=== PATIENT | female | born 1970 | race Asian ===

== ENCOUNTER 2021-03-24 10:49 | Outpatient (CLI) | payer OTHER, BC, SELFPAY ==
--- NOTE | ~2021-03-24 | MM_ITS ---
EXAMINATION: MM screening donovan BI w homa HISTORY: Screening mammogram TECHNIQUE: Craniocaudal and mediolateral oblique 3-D tomosynthesis images were obtained and synthetic 2-D images were generated. CAD analysis was submitted and interpreted. COMPARISON: 08/05/2018 diagnostic left mammogram and left breast ultrasound 06/27/2018, 7 bilateral digital screening mammogram examinations BREAST PARENCHYMAL COMPOSITION: The breasts are heterogeneously dense, which may obscure small masses . FINDINGS: Asymmetry is noted in the mid to upper outer right breast. Diagnostic right mammogram and r ight breast ultrasound examination are recommended. Otherwise there is no evidence of suspicious mass, calcification, or architectural distortion to sugg est malignancy in either breast. There has been no other suspicious interval change. IMPRESSION: 1. Asymmetry in the mid to upper outer right breast 2. Diagnostic right mammogram and right breast ultrasound are recommended BI-RADS Category 0: Incomplete: Needs additional imaging evaluation. Reviewed, dictated and finalized at location A.
== END 2021-03-24 10:50 | disposition home or self-care (01) ==
LOC: ANHIMG 10:55
PROVIDERS: Visit Provider Obstetrics & Gynecology
DX: Z12.31 Encounter for screening mammogram for malignant neoplasm of breast (principal); R92.8 Other abnormal and inconclusive findings on diagnostic imaging of breast
CPT/HCPCS: 77063; 77067

== ENCOUNTER 2021-07-11 13:09 | Outpatient (CLI) | payer OTHER, BC, SELFPAY ==
--- NOTE | ~2021-07-11 | MMUS_ITS ---
EXAMINATION: MM diagnostic donovan RT w homa, US breast RT complete HISTORY: Follow-up right breast asymmetry TECHNIQUE: Additional 3-D tomosynthesis images of the right breast were performed and synthetic 2-D i mages were generated. CAD analysis was submitted and interpreted. High resolution complete right najma st ultrasound was performed. COMPARISON: Comparison to multiple prior studies sequentially, with oldest reviewed study dated 10/2012. BREAST PARENCHYMAL COMPOSITION: The breasts are heterogenously dense, which may obscure small masses. FINDINGS: MAMMOGRAPHIC FINDINGS: There are no suspicious masses, calcifications or architectural distortion in the right breast to sug gest malignancy. ULTRASOUND: Complete US of all 4 quadrants of the the right breast and retroareolar region was reviewed. There ar e multiple simple and complicated cyst of the right breast, largest at 9:00 measuring 6 mm. No suspic ious masses to suggest malignancy. IMPRESSION: 1. No evidence for malignancy in the right breast. Benign findings. 2. Routine yearly screening mammogram and regular clinical breast examination are recommended. BI-RADS Category 2: Benign finding(s). Reviewed, dictated and finalized at location A. [facility] [employer]ENTER IMPRESSION: 1. No evidence for malignancy in the right breast. Benign findings. 2. Routine yearly screening mammogram and regular clinical breast examination a re recommended. BI-RADS Category 2: Benign finding(s).
== END 2021-07-11 13:10 | disposition home or self-care (01) ==
LOC: ANHIMG 13:10
PROVIDERS: PCP Nurse Practitioner Family; Visit Provider Obstetrics & Gynecology Gynecology
DX: R92.8 Other abnormal and inconclusive findings on diagnostic imaging of breast (principal)
CPT/HCPCS: 76641; 77061; 77065; G0279

== ENCOUNTER → 2022-04-03 10:25 | Outpatient (CLI) | payer OTHER, BC, SELFPAY ==
--- NOTE | ~2022-04-03 | US_ITS ---
EXAMINATION: US thyroid DATE: 04/03/2022 10:46 INDICATION: Palpable thyroid nodule. TECHNIQUE: Multiple ultrasound images of the thyroid were obtained. COMPARISON: None. FINDINGS: The right thyroid lobe measures 5.4 x 1.4 x 1.7 cm. The left thyroid lobe measures 5.4 x 1.7 x 1.4 c m. There is normal echotexture and echogenicity throughout the thyroid gland. 1.5 x 1.4 x 0.9 cm hyp oechoic, solid, lobulated, wider than tall nodule in the isthmus, with macrocalcification. Normal vas cular flow is present. IMPRESSION: Highly suspicious solid nodule in the thyroid isthmus (TR 5), recommend fine-needle aspiration for fu rther evaluation. Reviewed, dictated and finalized at location K. OUT HAND IMPRESSION: Highly suspicious solid nodule in the thyroid isthmus (TR 5), recommend fine-ne edle aspiration for further evaluation.
== END ==
PROVIDERS: PCP Nurse Practitioner Family; Visit Provider Nurse Practitioner
DX: E04.1 Nontoxic single thyroid nodule (principal)
CPT/HCPCS: 76536

== ENCOUNTER 2022-08-09 10:18 | Outpatient (CLI) | payer OTHER, BC, SELFPAY ==
--- NOTE | 2022-08-09 10:25 | ECG_ITS ---
Measurements Intervals [place] Rate: 65 P: 5 [place]: 152 QRS: 71 QRSD: 80 T: 15 QT: 408 QTc: 424 Interpretive Statements SINUS RHYTHM BASELINE ARTIFACT- I, II, AVR NORMAL ECG NO PREVIOUS ECG AVAILABLE FOR COMPARISON Electronically Signed On 08-09-2022 10:39:40 CDT by Micky Thibodeaux D.O.
[2022-08-09 11:12] LABS: Anion Gap 7 mmol/L (8-16); Blood Urea Nitrogen 14 mg/dL (7-17); Calcium 8.7 mg/dL (8.4-10.2); Carbon Dioxide 21 mmol/L (22-30); Chloride 106 mmol/L (98-107); Estimated Glomerular Filt Rate > 60; Glucose 104 mg/dL (65-110); Potassium 4.1 mmol/L (3.4-5.0); Sodium 134 mmol/L (137-145)
== END 2022-08-09 10:19 | disposition home or self-care (01) ==
PROVIDERS: Anesthesiology; PCP Nurse Practitioner Family; Visit Provider Otolaryngology
DX: E11.9 Type 2 diabetes mellitus without complications (principal); Z01.818 Encounter for other preprocedural examination
CPT/HCPCS: 36415; 80048; 93005

== ENCOUNTER 2022-08-11 00:35 | Day surgery (SDC) | payer OTHER, BC, SELFPAY ==
[2022-08-01 09:56] VITALS: BMI 27.4
--- NOTE | 2022-08-01 10:00 | PC.NURSE ---
Report to the Outpatient Waiting Room, entrance under the green pavilion located off [facility], at time 6:00 on date 08/11/22. Planned Procedure Time: 8:00. Time changes happen often and if your time is changed the preop area will call you the afternoon before. - You and your visitor will be asked to self-screen and do not enter if you have any COVID symptoms. - Only one visitor is requested with a max of two and NO children visitors are allowed at this time. - The patient visitor may be requested to leave or wait in car when not with patient due to distancing restrictions. - A mask is optional within the hospital at this time. Patients may have clear liquids (water, carbonated beverages, clear teas, apple juice) until 3 hours prior to surgery with a maximum of 20 ounces. - No food from midnight until time of surgery Take the following medications with a SIP of water the morning of surgery: N/A DO NOT STOP ANY OF YOUR OTHER PRESCRIPTION MEDICATIONS PRIOR TO SURGERY?EXCEPT THE FOLLOWING Medications to discontinue per physician: N/A Date to take last dose: N/A Please no make-up, nail tanzanian, hairspray, perfume, deodorant, or body powder the day of surgery. No jewelry (including any body piercings) or valuables the day of surgery, leave them at home. Please take a shower or bath the night before, or the morning of, surgery with an antibacterial soap. Wear comfortable, loose fitting clothing. - Jewelry must be removed prior to entering the operating room. Rings and piercings that are not removed may be cut off. - The hospital will not accept responsibility for valuables. - Please leave all valuables, including medications, at home the day of surgery. If you are going home after surgery, a licensed box truck driver must drive you home. - NO public transportation without another adult if you receive anesthesia. - We recommend that an adult stay with you for 24 hours following discharge. - We also recommend that you do not drive, make important decision, drink alcoholic beverages, or take any drugs that were not prescribed by your health care provider for at least 24 hours after your discharge time. Follow any additional instructions given to you from your surgeon. If you or anyone in your household have experienced Covid symptoms in the past week, please notify your surgeon or the nurse liaison at the phone number below for possible testing. Telephone instructions given to MALCOLM HILLIARD and asked if any additional questions and then verbalized understanding. Patient advised to call surgeon office or pre surgery nurse liaison [phone] if any additional questions.
--- NOTE | 2022-08-10 08:04 | PM.IMHP ---
H&P: HPI History of Present Illness Date/Time: 08/10/22 08:04 Chief Complaint: papillary thyroid cancer of the isthmus Narrative: planned procedure Review of Systems Review of Systems: All systems reviewed & are unremarkable except as noted in HPI and below [facility] Past Medical History Medical History (Updated 08/10/22 @ 08:05 by Gigi Carpenter MD) delivery delivered 2012 Family History Family History (Updated 06/29/22 @ 08:31 by DASHA Medellin) Other Alcoholism Mother Cancer Diabetes mellitus Father Hypertension Sibling Thyroid disorder Social History Social History (Updated 06/29/22 @ 08:25 by DASHA Medellin) Smoking status: Never smoker Alcohol intake: never Substance use: never Substance use type: does not use Lack of Transportation: No Lack of Food: Never True Current Housing: I Have Housing Concerned About Future Housing: No Difficulty Paying Gas/Electric Bills: No Difficulty Paying for Meds: No Currently Unemployed: No Education: High School Diploma/GED Difficulty w/ Childcare or Family Care: No Living arrangements: with family Spiritual care concerns: No Meds Home Medications and Allergies Home Medications Medication Instructions Recorded Confirmed Type No Home Medications 08/01/22 08/01/22 History Allergies Allergy/AdvReac Type Severity Reaction Status Date / Time No Known Drug Allergies Allergy Unknown Verified 08/01/22 09:55 Exam Narrative: isthmus nodule palpable Assessment and Plan Assessment and plan (1) Papillary thyroid carcinoma: Code(s): C73 - Malignant neoplasm of thyroid gland Status: Acute Assessment and Plan: plan operating room thyroid isthmusectomy possible lobectomy possible total thyroidectomy if necessary. Risks were discussed including need for tracheostomy vocal cord cord paralysis unilateral or bilateral damage to the parathyroid glands bleeding infection need for further procedures need for postoperative radioactive iodine need for further imaging need for time off work need for time off school need for pain medication need for drain placement need for drain removal damage to any structure above the clavicles by myself damage to any structure during the induction and maintenance of anesthesia. We will also be performing recurrent laryngeal nerve monitoring. Damage to any structure around the site of the probes. Patient voiced understanding of these risks and agreed.
[2022-08-11] VITALS (13 sets, daily range): BP systolic 100–134; BP diastolic 62–79; PULSE 65–81; RESP 12–20; TEMP 36.4–37.1; O2SAT 98–100
[2022-08-11] MEDS: ACETAMINOPHEN 500 MG TABLET 1000 MG PO (06:30)
[2022-08-11] MEDS: LACTATED RINGERS 1,000 ML 30 ML IV CONT ×2 (06:40→11:56)
--- NOTE | 2022-08-11 07:23 | WPDHPUPDATE1 ---
History and Physical Update Update Date/Time: 08/11/22 07:23 History and Physical has been reviewed, including an updated exam of the patient. There are NO changes in the patient's condition. Risks, benefits, and alternatives have been discussed and questions answered. Patient agrees to proceed with procedure.
--- NOTE | 2022-08-11 07:29 | WPDANESEPPF ---
Anes - Initial Pre Proc Eval Procedure: Operation Date: 08/11/22 08:00 Proposed Procedures p Isthmusectomy Versus Lobectomy Versus Total Thyroidectomy - Gigi Carpenter MD Date/Time: 08/11/22 07:29 Surgeon: Gigi Carpenter MD Pre Op Diagnosis: Papillary Ca Patient Data Age: 52 Gender: F Height: 1.63 m Weight: 72.6 kg Allergies Allergy/AdvReac Type Severity Reaction Status Date / Time No Known Drug Allergies Allergy Unknown Verified 08/11/22 06:33 Home Medications Medication Instructions Recorded Confirmed Type No Home Medications 08/01/22 08/11/22 History Patient hx anesthesia problems: none Family hx anesthesia problems: none Results Review: All pre-operative results and documents have been reviewed as part of the pre-operative evaluation. [facility] Past Medical History Medical History delivery delivered 2012 Family History Family History Other Alcoholism Mother Cancer Diabetes mellitus Father Hypertension Sibling Thyroid disorder Social History Social History Smoking status: Never smoker Alcohol intake: never Substance use: never Substance use type: does not use Lack of Transportation: No Lack of Food: Never True Current Housing: I Have Housing Concerned About Future Housing: No Difficulty Paying Gas/Electric Bills: No Difficulty Paying for Meds: No Currently Unemployed: No Education: High School Diploma/GED Difficulty w/ Childcare or Family Care: No Living arrangements: with family Spiritual care concerns: No Anes - Eval Final PreProcedure Day of Procedure 08/11/22 07:29 Patient weight: overweight Heart: regular rate and rhythm Lungs: clear to auscultation Airway: Mallampati scale class II Neurological: alert and oriented Last oral intake: >/= 8 hours ASA classification: II Emergent: no Anesthetic plan: proceed Anesthesia type and monitoring: general ETT and standard monitoring Results Review: All pre-operative results and documents have been reviewed as part of the pre-operative evaluation. Informed Consent: The patient's anesthetic plan and its attendant risks and benefits were discussed with the patient/family/POA. Questions were solicited and answers provided to the satisfaction of the patient/family/POA.
[2022-08-11 07:48] LABS: Glucose Point of Care 121 mg/dl (65-105)
[2022-08-11] MEDS: ceFAZolin 2 GM/D5W 50 ML 2 GM/50 ML BAG IVPB (08:20)
[2022-08-11] MEDS: LIDO 1%/EPINEPHRINE 1:100,000 20 ML VIAL 5 ML INFILTRATE (08:39)
[2022-08-11 12:12] LABS: Glucose Point of Care 129 mg/dl (65-105)
[2022-08-11] MEDS: fentaNYL CITRATE INJ (*CRX) 100 MCG/2 ML VIAL 25 MCG IV PUSH ×7 (12:34→13:04)
[2022-08-11] MEDS: oxyCODONE HCL (*CRX) 5 MG TAB IR PO (14:31)
--- NOTE | 2022-08-11 18:04 | P.OP_ITS ---
Procedure Note - Detailed Date of Procedure 08/11/22 Pre-op Diagnosis Thyroid nodule papillary thyroid carcinoma Post-op Diagnosis Same Procedure Performed neck exploration Surgeon Gigi Carpenter MD Anesthesia General Indications see above Findings unable to locate large midline thyroid nodule which could be and I inadvertently split the nodule or was not down far enough inferiorly Description of Procedure patient identified consent verified. Patient brought operating room. Time-out performed. General anesthesia induced endotracheal tube secured in the airway. Nims monitoring. Patient prepped draped position Nims confirmed. Given that there was odd nodularity superior to the standard incision was made 1 cm higher about 2.5 fingerbreadths above the sternal notch in between the cricoid and sternal notch. A 4 cm incision was made and then extended to a 5 cm incision. Subplatysmal flaps were elevated left anterior jugular vein was large and obstructive this was ligated tied off with 3-0 interrupted silk sutures. Sub platysmal flaps elevated dura hooks placed midline were face split and moved out of the way thyroid lobes were identified no thyroid isthmus was located. Dissection was then carried down to the trach in attempt to undermine the thyroid isthmus and locate this large lobe again was not able to located. I was able to look all the way from the superior mediastinum up to the thyroid cartilage with no nodule identified. Of note preoperatively the nodule appeared to be much smaller and or absent. The decision at this time was made to close after discussion with Radiology given that I could not see the nodule in area was located on ultrasound. A drain was placed dura hooks rimmed the deep strap muscles closed with 3-0 interrupted Vicryl sutures. The platysma closed with 3- 0 interrupted Vicryl sutures. Deep dermal layer also closed with 3-0 interrupted Vicryl sutures. 4-0 Monocryl subcuticular suture was placed skin glue applied patient tolerated the procedure well her voice postoperatively was normal. I discussed with the that the with the that I was unable to find the nodule. Patient tolerated the procedure well no complications care the patient given Anesthesiology. Blood loss about 25 cc. Of note there was abnormal tissue in the midline thyroid region which was sent but it turned out just to be neck fat. There were no abnormal appearing lymph nodes during the time of surgery. Drains No Packing No Pathology Yes Complications No immediate complications Condition Stable Disposition PACU [facility] Billing Surgery - Charge Forward: Surgery Billing
== END 2022-08-11 15:35 | disposition home or self-care (01) ==
PROVIDERS: PCP Nurse Practitioner Family; Visit Provider Otolaryngology
PROC: (CPT 60210; principal; 2022-08-11 08:00)
DX: C73 Malignant neoplasm of thyroid gland (principal)
CPT/HCPCS: 60210; 82948; 88305; 88331; A9270; J0330; J0690; J1100; J2250; J2405; J2704; J3010; J7120

== ENCOUNTER 2023-05-08 13:24 | Outpatient (CLI) | payer OTHER, BC, SELFPAY ==
[2023-05-08 17:15] LABS: Free T4 Free Thyroxine 2.38 ng/mL (0.78-2.19)
[2023-05-08 17:45] LABS: Hemoglobin A1C 6.2 % (<5.7)
[2023-05-11 03:17] LABS: Thyroglobulin <0.1 ng/mL (2.8-40.9); Thyroglobulin Antibodies <1 IU/mL (<=1)
== END 2023-05-08 13:25 | disposition home or self-care (01) ==
LOC: ANHWCLAB 13:27
PROVIDERS: PCP Nurse Practitioner Family; Visit Provider Internal Medicine Endocrinology, Diabetes & Metabolism
DX: C73 Malignant neoplasm of thyroid gland (principal); R73.09 Other abnormal glucose
CPT/HCPCS: 36415; 83036; 84432; 84439; 84443; 86800

== ENCOUNTER 2023-09-29 11:10 | Emergency (ER) | payer OTHER, BC, SELFPAY ==
[2023-09-29 11:29] VITALS: BP 106/69; PULSE 98; RESP 16; TEMP 36.8; O2SAT 99
--- NOTE | 2023-09-29 11:31 | ED.URI ---
HPI - URI/Sore Throat General Chief Complaint: Upper Respiratory Infection Stated Complaint: SORE THROAT/FEVER/TIRED/STREP EXPOSURE Time Seen by Provider: 09/29/23 11:34 Source: patient and RN notes reviewed Mode of arrival: ambulatory Limitations: no limitations History of Present Illness HPI Narrative: 53-year-old female presents with concern for sore throat, sweats, fatigue. Reports symptoms started yesterday. Reports her daughter had strep throat recently MD elicited complaint: sore throat Related Data Home Medications Medication Instructions Recorded Confirmed metformin 500 mg tablet 500 mg PO DAILY 09/18/22 09/29/23 cholecalciferol (vitamin D3) 50 50 mcg PO DAILY 01/09/23 09/29/23 mcg (2,000 unit) capsule Allergies Allergy/AdvReac Type Severity Reaction Status Date / Time levothyroxine sodium Allergy Mild hives Verified 05/08/23 13:00 [From Synthroid] levothyroxine Allergy Unknown Hives Verified 05/08/23 13:00 Review of Systems Review of Systems: CONSTITUTIONAL: Reports malaise, sweats, fatigue EYES: Denies visual changes, redness, or discharge. ENT: Denies rhinorrhea, congestion, sinus pain, otalgia. Reports sore throat. CARDIOVASCULAR: Denies chest pain, palpitations, or edema. RESPIRATORY: Denies cough. Denies dyspnea. GASTROINTESTINAL: Denies abdominal pain, nausea, vomiting, diarrhea SKIN: Denies rash or itching. MUSCULOSKELETAL: Denies myalgia. NEUROLOGIC: Reports headache. All systems reviewed & are unremarkable except as noted in HPI and below PMFSH Past Medical History Medical History Hypothyroidism Papillary thyroid carcinoma Type 2 diabetes mellitus Surgical History Surgical History delivery delivered 2013 History of thyroidectomy 09/13/2022 Family History Family History Other Alcoholism Mother Cancer Diabetes mellitus Father Hypertension Sibling Thyroid disorder Social History Social History Smoking status: Never smoker Alcohol intake: never Substance use: never Substance use type: does not use Lack of Transportation: No Lack of Food: Never True Current Housing: I Have Housing Concerned About Future Housing: No Difficulty Paying Gas/Electric Bills: No Difficulty Paying for Meds: No Currently Unemployed: No Education: Associate Degree Difficulty w/ Childcare or Family Care: No Living arrangements: with family Spiritual care concerns: No Comments At time of signature, agree with nursing past medical, surgical, social and family history. There is no relevant family history pertinent to the presenting complaint Exam Narrative: GENERAL: Well-appearing, well-nourished, and in no acute distress. HEAD: Normocephalic EYES: PERRLA, conjunctivae clear ENT: Nares clear, turbinates edematous and erythematous, clear discharge. Mucous membranes moist. TM pearly finch with dull light reflex bilaterally; no tragal tenderness. Oropharynx erythematous without lesions. Tonsils enlarged and without exudate, no drooling, no hoarseness, no trismus, uvula midline. NECK: Supple. No lymphadenopathy CHEST: Clear to auscultation, breath sounds equal. No wheezing, rhonchi, rales, or stridor. No respiratory distress, speaks in full sentences. HEART: Regular rate and rhythm. No murmur heard. SKIN: Warm, dry, no rash. NEURO: Alert and oriented x3. PSYCH: Normal mood and affect Course Course Emergency Course: Patient is aware of diagnosis, understands and agrees to treatment plan. Anticipatory guidance given. Patient agrees to follow-up as directed and is aware of reasons to seek care at the emergency department. Portions of this record may have been created with voice recognition software Level of Care: Ex
== END 2023-09-29 11:44 | disposition home or self-care (01) ==
PROVIDERS: Emergency Provider Nurse Practitioner; PCP Nurse Practitioner Family
DX: J02.0 Streptococcal pharyngitis (principal); E89.0 Postprocedural hypothyroidism; E11.9 Type 2 diabetes mellitus without complications; Z85.850 Personal history of malignant neoplasm of thyroid
CPT/HCPCS: 87880; 99213; G0463

== ENCOUNTER 2023-11-13 14:12 | Outpatient (CLI) | payer OTHER, BC, SELFPAY ==
[2023-11-13 15:19] LABS: Thyroid Stimulating Hormone 0.299 uIU/mL (0.465-4.680)
[2023-11-13 16:14] LABS: Free T4 Free Thyroxine 1.89 ng/mL (0.78-2.19)
[2023-11-15 07:14] LABS: Thyroglobulin <0.1 ng/mL; Thyroglobulin Antibodies <1 IU/mL (< or = 1)
== END 2023-11-13 14:13 | disposition home or self-care (01) ==
PROVIDERS: PCP Nurse Practitioner Family; Visit Provider Internal Medicine Endocrinology, Diabetes & Metabolism
DX: C73 Malignant neoplasm of thyroid gland (principal); E89.0 Postprocedural hypothyroidism
CPT/HCPCS: 36415; 84432; 84439; 84443; 86800

== ENCOUNTER 2024-11-20 10:02 | Outpatient (CLI) | payer OTHER, BC, SELFPAY ==
[2024-11-20 10:47] LABS: Alanine Aminotransferase 86 U/L (6-35); Albumin Level 4.6 g/dL (3.5-5.1); Alkaline Phosphatase 55 U/L (38-126); Anion Gap 11 mmol/L (4-12); Aspartate Amino Transferase 55 U/L (14-36); Bilirubin,Total 0.6 mg/dL (0.2-1.3); Blood Urea Nitrogen 14 mg/dL (7-17); Calcium 9.4 mg/dL (8.4-10.2); Carbon Dioxide 26 mmol/L (22-30); Chloride 104 mmol/L (98-107); Cholesterol 187 mg/dL (0-200); Estimated Glomerular Filt Rate > 60; Glucose 112 mg/dL (65-110); HDL Direct 40 mg/dL; Sodium 141 mmol/L (137-145); Total Protein 8.4 g/dL (6.3-8.2); Triglycerides 168 mg/dL (<150)
[2024-11-20 10:51] LABS: Creatinine Urine 188.3 mg/dL
[2024-11-20 10:53] LABS: Free T4 Free Thyroxine 1.64 ng/dL (0.78-2.19); Vitamin D 25 Hydroxy 32.5 ng/mL
[2024-11-20 10:58] LABS: LDL Cholesterol Direct 89 mg/dL
[2024-11-20 10:59] LABS: MALB Creatinine Ratio 5.7 mg/g (0-30); Microalbumin Urine Random 10.8 mg/L (0-16.7)
[2024-11-20 11:22] LABS: Thyroid Stimulating Hormone 0.101 uIU/mL (0.465-4.680)
[2024-11-24 11:43] LABS: Thyroglobulin 0.2 ng/mL; Thyroglobulin Antibodies <1 IU/mL (< or = 1)
== END 2024-11-20 10:03 | disposition home or self-care (01) ==
LOC: ANHLAB 10:03
PROVIDERS: PCP Nurse Practitioner Family; Visit Provider Internal Medicine Endocrinology, Diabetes & Metabolism
DX: C73 Malignant neoplasm of thyroid gland (principal); E11.9 Type 2 diabetes mellitus without complications; E89.0 Postprocedural hypothyroidism; E55.9 Vitamin D deficiency, unspecified
CPT/HCPCS: 36415; 80053; 80061; 82043; 82306; 82607; 84432; 84439; 84443; 86800

== ENCOUNTER 2024-12-23 08:04 | Outpatient (CLI) | payer OTHER, BC, SELFPAY ==
--- NOTE | ~2024-12-23 | US_ITS ---
EXAM: ABDOMEN ULTRASOUND HISTORY: evaluate fatty liver COMPARISON: None FINDINGS: LIVER: The liver is increased in echogenicity and unremarkable in size. The portal vein is patent, demonstrating hepatopedal flow. GALLBLADDER: No stones are identified within the gallbladder, which is unremarkable. No gallbladder wall thickening or pericholecystic fluid. BILE DUCTS: Common bile duct measures 3.6mm. PANCREAS: Limited evaluation of the pancreas secondary to overlying bowel gas IMPRESSION: Limited evaluation of the pancreas secondary to overlying bowel gas Fatty infiltration of the liver, which is not enlarged. Otherwise, unremarkable sonographic evaluation of the right upper quadrant, as detailed above Reviewed, dictated and finalized at location A.
--- OUTSIDE RECORDS SUMMARY | 2024-12-23 08:11 | XMS_ITS | Referral Summary ---
Author Organization [facility] Address [address] [place] [address] Care Team Providers Care Interlocking Pavement Installer Name Role Phone Nancie Pires NP Primary Care Provider + [phone] Arian Wills MD Unavailable [phone] Allergies No known active allergies Medications cholecalciferol (VITAMIN D-3) 25 mcg (1,000 unit) tablet Take 1 tablet by mouth daily Active iron aspgly,ps-C-B12 -FA-Ca-suc (Ferrex 150 Forte Plus) 150-60-25-1 zw-rl-cgv-mg capsule Take 1 capsule by mouth daily Active metFORMIN (GLUCOPHAGE) 500 mg tablet 07/18/2020 Activ e Active Problems Problem Noted Date Diagnosed Date Abnormal findings on diagnostic imaging of breas t 02/06/2019 Abnormal mammogram of left breast 08/21/2018 Social History Tobacco Use Types Packs/Day Years Used Date Smoking Tobacco: Never Tobacco Cessation:Counseling Given: Not Answered Personal Safety Answer Date Recorded Getting School Help Needed Not on file 07/05 Comments No Sex and Gender Information Value Date Recorded Sex Assigned at Not on file Legal Sex Female 1:45 PM CDT Gender Identity Female 08/08/2018 1:15 PM CDT Sexual Orientation Not on file Last Filed Vital Signs Vital Sign Reading Time Taken Comments Blood Pressure 159/79 06/20/2022 9:50 AM BEZEL CUTTER Pulse 74 06/20/2022 9:50 AM BEZEL CUTTER Temperature 36.8 C (98.3 F) 06/20/2022 9:50 AM BEZEL CUTTER Respiratory Rate - - Oxygen Saturation - - Inhaled Oxygen Concentration - - Weight 74.4 kg (164 lb) 06/20/2022 9:50 AM BEZEL CUTTER Height 163.6 cm (5' 4.4) 06/20/2022 9:50 AM BEZEL CUTTER Body Mass Index 27.8 06/20/2022 9:50 AM BEZEL CUTTER Plan of Treatment Not on file Procedures Procedure Name Priority Date/Time Associated Diagnosis Comments SCREENING MAMMOGRAM BILATERAL W JULES Schedule Routine, Read Routine (OP Routine) 08/23/2020 9:54 AM CDT Encounter for screening mammogram for malignant neoplasm of breast from Last 3 Months or Most Recently Relevant to Health Maintenance Results * Screening Mammogram Bilateral W Jules (08/23/2020 9:54 AM CDT) Anatomical Region Laterality Modality Breast Bilateral Mammography Narrative 08/26/2020 2:04 PM CDT Mammogram Technique: Bilateral Digital Breast Tomosynthesis, Bilateral C-view 2D Screening mammogram. Views obtained: bilateral craniocaudal and bilateral mediolateral oblique. Computer Aided Detection was performed. Mammogram Findings: The present examination has been compared to a prior imaging study performed at [facility] on 08/21/2019. The breasts are heterogeneously dense, which may obscure small masses. There is no suspicious abnormality in either breast. Impression: There is no mammographic evidence of malignancy. Annual screening mammography is recommended. OVERALL FINAL ASSESSMENT: BI-RADS CATEGORY 1: Negative. Procedure Note Belkis Brown MD - 08/26/2020 Mammogram Technique: Bilateral Digital Breast Tomosynthesis, Bilateral C-view 2D Screening mammogram. Views obtained: bilateral craniocaudal and bilateral mediolateral oblique. Computer Aided Detection was performed. Mammogram Findings: The present examination has been compared to a prior imaging study performed at [facility] on 08/21/2019. The breasts are heterogeneously dense, which may obscure small masses. There is no suspicious abnormality in either breast. Impression: There is no mammographic evidence of malignancy. Annual screening mammography is recommended. OVERALL FINAL ASSESSMENT: BI-RADS CATEGORY 1: Negative. us Self Screening Mammogram IMG MAMMO PROCEDURES Fi nal Result from Last 3 Months or Most Recently Relevant to Health Maintenance Insurance [employer] PREFERRED Member Subscriber Plan / Payer (Ef fective 2022-Present) Name:Nicolette Hilliard Relation to Subscriber:Spouse Name:DANIELLE HILLIARD Date of :1972 (Home) Address: [address] [place] [id number] Payer ID:[id number] (NAIC) Type:Pathable Address: [address] CORE BLUE ACC CHOICE OOS [facility] Care Teams Interlocking Pavement Installer Relationship Specialty Start Date End Date Nancie Pires NP [address] [place] [address] [phone] PCP - General Nurse Practitioner 08/07/18 Arian Wills MD [address] [place] [id number] Referring Physician Obstetrics and Gynecology 08/21/18
--- OUTSIDE RECORDS SUMMARY | 2024-12-23 08:11 | XMS_ITS | Clinical Summary ---
Author Organization [facility] Address [address] [place] [address] Care Team Providers Care Apparatus Cleaner Name Role Phone Nancie Pires NP Primary Care Provider + [phone] Arian Wills MD Unavailable [phone] Allergies No known active allergies Medications cholecalciferol (VITAMIN D-3) 25 mcg (1,000 unit) tablet Take 1 tablet by mouth daily Active iron aspgly,ps-C-B12 -FA-Ca-suc (Ferrex 150 Forte Plus) 150-60-25-1 lm-sf-xux-mg capsule Take 1 capsule by mouth daily Active metFORMIN (GLUCOPHAGE) 500 mg tablet 07/18/2020 Activ e Active Problems Problem Noted Date Diagnosed Date Abnormal findings on diagnostic imaging of breas t 02/06/2019 Abnormal mammogram of left breast 08/21/2018 Surgical History Surgery Date Site/Laterality Comments SECTION 10/15/2012 Family History Medical History Relation Name Comments Breast cancer Mother Relation Name Status Comments Mother Social History Tobacco Use Types Packs/Day Years Used Date Smoking Tobacco: Never Tobacco Cessation:Counseling Given: Not Answered Personal Safety Answer Date Recorded Getting School Help Needed Not on file 07/05 Comments No Sex and Gender Information Value Date Recorded Sex Assigned at Not on file Legal Sex Female 1:45 PM CDT Gender Identity Female 08/08/2018 1:15 PM CDT Sexual Orientation Not on file Obstetrics History Last Filed Vital Signs Vital Sign Reading Time Taken Comments Blood Pressure 159/79 06/20/2022 9:50 AM RUBBER BLOCK LAYER Pulse 74 06/20/2022 9:50 AM RUBBER BLOCK LAYER Temperature 36.8 C (98.3 F) 06/20/2022 9:50 AM RUBBER BLOCK LAYER Respiratory Rate - - Oxygen Saturation - - Inhaled Oxygen Concentration - - Weight 74.4 kg (164 lb) 06/20/2022 9:50 AM RUBBER BLOCK LAYER Height 163.6 cm (5' 4.4) 06/20/2022 9:50 AM RUBBER BLOCK LAYER Body Mass Index 27.8 06/20/2022 9:50 AM RUBBER BLOCK LAYER Plan of Treatment Health Maintenance Due Date Last Done Comments Cervical Cancer Screening 1972 Colon Cancer Screening-Colonoscopy 1972 Depression Screening 1972 Hepatitis C Screening 1972 DTaP/Tdap/Td Vaccine (1 - Tdap) 1983 Hepatitis B Screening 1990 Regular Well Visit/Exam 18-64 1990 Breast Cancer Screening-Mammogram 08/23/2021 08/23/2020, 08/21/2019 Zoster Vaccine (1 of 2) 2022 Covid-19 Vaccine (3 - 2023-2 5 season) 2024 02/19/2021, 01/29/2021 Influenza Vaccine (#1) 2025 Pneumococcal vaccine <65 Aged Out No longer eligible based on patient's age to complete this topic Procedures Procedure Name Priority Date/Time Associated Diagnosis [...] to a prior imaging study performed at [facility] on 08/21/2019. The breasts are heterogeneously dense, [...] to a prior imaging study performed at [facility] on 08/21/2019. The breasts are heterogeneously dense, which may obscure small masses. There is no suspicious abnormality in either breast. Impression: There is no mammographic evidence of malignancy. Annual screening mammography is recommended. OVERALL FINAL ASSESSMENT: BI-RADS CATEGORY 1: Negative. us Self Screening Mammogram IMG MAMMO PROCEDURES Fi nal Result from Last 3 Months or Most Recently Relevant to Health Maintenance Insurance [facility] PREFERRED Member Subscriber Plan / Payer (Ef fective 2022-Present) Name:Nicolette Manuel Relation to Subscriber:Spouse Name:ARMINDADANIELLE Date of :1972 (Home) Address: [address] [place] [id number] Payer ID:[id number] (NAIC) Type:[facility] Address: [facility] [id number] [place] [id number] [facility] CORE BLUE ACC CHOICE OOS Member Subscriber Plan / Payer (Ef fective 2022-Present) Name:Nicolette Manuel Relation to Subscriber:Spouse Name:Danielle Mnauel Date of :1965 Address: [address] [place] [address] Payer ID:[id number] (NAIC) Type:[facility] Address: [address] [facility] H[facility]/PPO Address: [address] [address] [place] [address] Care Teams Apparatus Cleaner Relationship Specialty Start Date End Date Nancie Pires NP [address] [place] [phone] PCP - General Nurse Practitioner 08/07/18 Arian Wills MD [address] [place] [address] Referring Physician Obstetrics and Gynecology 08/21/18
--- OUTSIDE RECORDS SUMMARY | 2024-12-23 08:11 | XMS_ITS | Clinical Summary ---
Author Organization [facility] Address [address] [place] [address] Care Team Providers Care Manager Employee Benefits Name Role Phone Nancie Pires MICHELLE Primary Care Provider [phone] Allergies No known active allergies Medications vitamin D3, cholecalciferol , 1000 UNIT Tab tablet Take 1 tablet (25 mcg total) by mouth daily. Active Blood Glucose Monitoring Suppl (FREESTYLE LITE) DeviceIndicatio ns:Diabetes ([facility]) Use daily to check blood glucose level for diabetes 1 Device 0 Active Glucose Blood (FREESTYLE LITE) test stripIndication s:Diabetes ([facility]) Use daily to check blood glucose levels for diabetes 100 strip 1 0 Active Lancets (FREESTYLE) lancetsIndicati ons:Type 2 diabetes mellitus with hyperglycemia, without long-term current use of insulin ([facility]) Use daily to check blood glucose level for diabetes 100 each 2 1 Active Glucose Blood (CONTOUR NEXT TEST) test stripIndication s:Type 2 diabetes mellitus with hyperglycemia, without long-term current use of insulin ([facility]) 1 strip by Other route daily as needed. Use as instructed 200 strip 1 1 Active levothyroxine (SYNTHROID) 112 MCG tablet Take 1 tablet (112 mcg total) by mouth daily. Active metFORMIN (GLUCOPHAGE) 500 MG tabletIndicatio ns:Type 2 diabetes mellitus with hyperglycemia, without long-term current use of insulin ([facility]) Take 1 tablet (500 mg total) by mouth daily with breakfast. APPOINTMENT REQUIRED FOR FURTHER REFILLS. PLEASE CONTACT OFFICE. 90 tablet 3 5 Active Active Problems Problem Noted Date Diagnosed Date Thyroid mass of unclear etiology 08/14/2022 History of anemia 10/12/2020 Type 2 diabetes mellitus wit h hyperglycemia, without long-term current use of insulin ([facility]) 10/08/2020 Vitamin B12 deficiency 10/08/2020 Cardiac murmur 07/23/2019 Vitamin D deficiency 06/25/2018 Adult BMI 28.0-28.9 kg/sq m 06/25/2018 Encounters Date Type Department Care Team Description 11/20/2024 Scan [facility] Scanned, [facility] (SCAN) from Last 3 Months Immunizations Immunization Administration Dates Next Due PFIZER COVID-19 (ORIGINAL FO RMULATION, PURPLE CAP) mRNA, LNP-S, PF, 30 MCG/0.3 ML DOSE 02/19/2021,01/29/2021 Pneumococcal (Prevnar 20) 02/16/2023 Family History Medical History Relation Comments Diabetes Mother Hypertension Paternal Grandfather Thyroid Sister Relation Status Comments Mother Paternal Grandfather Sister Social History Tobacco Use Types Packs/Day Years Used Date Smoking Tobacco: Never Smokeless Tobacco: Never Tobacco Cessation:Counseling Given: Not Answered Alcohol Use Standard Drinks/Week Comments No 0 (1 standard drink = 0.6 oz pur e alcohol) AUDIT-C Answer Date Recorded Frequency of Alcohol Consumption Never 07/18/2019 Average Number of Drinks Not on file 020 Frequency of Binge Drinking Not on file 06/29 PHQ-2 Answer Date Recorded Patient Health Questionnaire-2 Score 0 08/14/2022 Comments No Sex and Gender Information Value Date Recorded Sex Assigned at Not on file Legal Sex Female 9:03 AM SCREW MACHINE SET UP OPERATOR TOOL Gender Identity Not on file Sexual Orientation Not on file Last Filed Vital Signs Vital Sign Reading Time Taken Comments Blood Pressure 134/88 07/09/2023 11:21 AM SCREW MACHINE SET UP OPERATOR TOOL Pulse 65 07/09/2023 11:21 AM SCREW MACHINE SET UP OPERATOR TOOL Temperature 36.4 C (97.6 F) 02/16/2023 10:13 AM CDT Respiratory Rate 16 02/16/2023 10:13 AM CDT Oxygen Saturation 100% 07/09/2023 11:21 AM SCREW MACHINE SET UP OPERATOR TOOL Inhaled Oxygen Concentration - - Weight 73.5 kg (162 lb) 07/09/2023 11:21 AM SCREW MACHINE SET UP OPERATOR TOOL Height 162.6 cm (5' 4) 07/09/2023 11:21 AM SCREW MACHINE SET UP OPERATOR TOOL Body Mass Index 27.81 07/09/2023 11:21 AM SCREW MACHINE SET UP OPERATOR TOOL Plan of Treatment Health Maintenance Due Date Last Done Comments Cervical Cancer Screening Pap Smear (Age 30 to 64) Every 3 Years 1972 Colorectal Cancer Screening Colonoscopy (10 Years) 1972 Kidney Health Evaluation 1972 Hepatitis C 1990 DTaP, Tdap and Td Vaccines (1 - Tdap) 1991 Hepatitis B Vaccines (1 of 3 - 19+ 3-dose series) 1991 Cervical Cancer Screening Pap with HPV Testing (Age 30 to 64) Every 5 Years 2002 Cervical Cancer Screening with HPV 2002 Annual Physical 06/19/2019 06/19/2018 Zoster Vaccines (1 of 2) 2022 Lipid Panel 02/06/2023 02/06/2022, 06/29, 03/20/2019 Mammogram Screening 07/11/2023 07/11/2021, 08/23/2020, 08/05/2018, Additional history exists Hemoglobin A1C 11/07/2023 05/08/2023, 01/27, 08/14/2022, Additional history exists COVID-19 Vaccine ( season) 2024 02/19/2021, 01/29/2021 PHQ-2 (Physician [place]) 05/28/2024 Diabetes: Retinopathy Eye Exam 01/17/2025 01/17/2023 Pneumococcal Vaccine: 50+ Years Completed 02/16/2023 Meningococcal B Vaccine Aged Out No l onger eligible based on patient's age to complete this topic Meningococcal Vaccine Aged Out No monica cory eligible based on patient's age to complete this topic RSV Immunizations Under 20 Months Aged Out No longer eligible based on patient's age to complete this topic Procedures Procedure Name Priority Date/Time Associated Diagnosis Comments OUTSIDE LAB (SCAN ORDER) 11/20/2024 OUTSIDE LAB (SCAN ORDER) 11/20/2024 OUTSIDE LAB (SCAN ORDER) 11/20/2024 OUTSIDE LAB (SCAN ORDER) Routine 05/08/2023 DIABETIC RETINOPATHY EXAM (NEGATIVE)(SCAN ORDER) Routine 01/17/2023 LIPID PANEL Routine 02/06/2022 9:20 AM CDT Type 2 diabetes mellitus with hyperglycemia, without long-term current use of insulin MAMMOGRAM GENERIC (SCAN ORDER) 07/11/2021 from Last 3 Months or Most Recently Relevant to Health Maintenance Results * OUTSIDE LAB (SCAN ORDER) (11/20/2024) Only the most recent of4 resultswithin the time period is included. 11/20/2024 [facility] Scanned SCANNING Final Resu lt * DIABETIC RETINOPATHY EXAM (NEGATIVE)(SCAN) (01/17/2023) [facility] Scanned SCANNING Final Resu lt [facility] * (ABNORMAL) LIPID PANEL (02/06/2022 9:20 AM CDT) CHOLESTEROL 153 <200 MG/DL 02/06/2022 4:24 PM CDT [facility] TRIGLYCERIDES 256(H) <150 MG/DL 02/06/2022 4:24 PM CDT [facility] HDL 36(L) >40 MG/DL 02/06/2022 4:24 PM CDT [facility] LDL-C 66 <100 MG/DL 02/06/2022 4:24 PM CDT [facility] VLDL CALCULATION 51(H) 5 - 28 MG/DL 02/06/2022 4:24 PM CDT [facility] CHOL/HDL RATIO 4.3(H) 0.0 - 4.0 02/06/2022 4:24 PM CDT [facility] LDL/HDL 1.8 0.41 - 2.13 02/06/2022 4:24 PM CDT [facility] NON HDL CHOLESTEROL 117 <140 MG/DL 02/06/2022 4:24 PM CDT [facility] [place]A [place] 02/06/2022 9:20 AM CDT us Nancie Pires [address] SUPERVISOR LABORATORY Final Result [facility] [place] [address] [facility] [place] [address], [place] [phone] * MAMMOGRAM GENERIC (07/11/2021) Anatomical Region Laterality Modality Other 07/11/2021 Narrative 07/11/2021 Ordered by an unspecified provider. us Documents Scanned SCANNING Final Result from Last 3 Months or Most Recently Relevant to Health Maintenance Insurance [facility] Care Teams Manager Employee Benefits Relationship Specialty Start Date End Date Nancie Pires FNP [address] [place] [id number] PCP - General Nurse Practitioner Family 06/07/18
--- OUTSIDE RECORDS SUMMARY | 2024-12-23 08:11 | XMS_ITS | Clinical Summary ---
Author Organization [facility] Address [address] [place] [phone] Phone Care Team Providers Care Mobile Marketing Manager Name Role Phone Matias Brown MD Primary Care Provider [phone] Social History Tobacco Use Types Packs/Day Years Used Date Smoking Tobacco: Never Assessed Comments Unknown Sex and Gender Information Value Date Recorded Sex Assigned at Not on file Legal Sex Female 6:12 AM CIVIL ENGINEERING SPECIALIST Gender Identity Not on file Sexual Orientation Not on file Plan of Treatment Health Maintenance Due Date Last Done Comments DTAP/TDAP/TD VACCINES (1 - Tdap) 1991 HEPATITIS B VACCINES (1 of 3 - 19+ 3-dose series) 06/1990 HPV/Cotest (21-29) 1993 CERVICAL CANCER SCREENING 2002 HPV/Cotest (30-65) 2002 PAP SMEAR 2002 BREAST CANCER SCREENING 2012 COLORECTAL SCREENING 2017 Colorectal Cancer Screening 2017 FIT-DNA Q 3 years 2017 FIT/FOBT Q 1 year 2017 Flex Sig/CT Colonography Q 5 years 2017 ZOSTER VACCINE (1 of 2) 2022 INFLUENZA VACCINE (#1) 2024 Insurance [employer] BLUE ACCESS/TRUE BLUE PPO Care Teams Mobile Marketing Manager Relationship Specialty Start Date End Date Matias Brown MD PCP - General 05/14/15
--- OUTSIDE RECORDS SUMMARY | 2024-12-23 08:11 | XMS_ITS | Clinical Summary ---
Author Organization [facility] Address [address] [place] [address] Care Team Providers Care Automation/Controls Manager Name Role Phone Nancie Pires LAURLE Primary Care Provider [phone] Source Comments [facility],non-owned Affiliates and Associated Physician Practices is amultiple site organization consisting of ambulatory clinics and hospital sitesin [place] and [place]. This disclosure is being madepursuant to the Care Everywhere program and may not contain all information available regarding this patient. Last updated 18.[facility] Allergies No known active allergies Medications * Be aware that medications may not be up to date on this document. Alwaysverify current medications with the patient. Cholecalcifero l 25 MCG (1000 UT) Take 25 mcg by mouth once daily Active Fe-Succ Ac-C-Thre Ac-B12-FA (Ferrex 150 Forte Plus) 50-100 MG capsule Take 1 (one) capsule by mouth once daily Active metFORMIN (Glucophage) 500 MG tablet Take 1 (one) tablet by mouth as directed 2 Active oxyCODONE, immediate release, (Roxicodone) 5 MG tabletIndicati ons:Papillary thyroid carcinoma (HCC) Take 1 (one) tablet by mouth every 4 hours as needed 20 tablet 3 Active acetaminophen (Tylenol) 325 MG tablet Take 2 (two) tablets by mouth every 6 hours as needed Maximum allowable Acetaminophen amount = 4 Grams (4000 mg) / 24 hours. 60 tablet 1 3 Active ibuprofen (Motrin) 600 MG tablet Take 1 (one) tablet by mouth every 6 hours as needed 30 tablet 1 3 Active levothyroxine (Synthroid) 112 MCG tablet Take 1 (one) tablet by mouth daily before breakfast Take on an empty stomach - wait 2 hours after taking before ingesting any food. 30 tablet 1 3 Active Active Problems Problem Noted Date Diagnosed Date Papillary thyroid carcinoma 08/25/2022 Immunizations Immunization Administration Dates Next Due Magin primary monoval ent 12+ yr 0.3mL Purple cap 02/19/2021,01/29/2021 Social History Tobacco Use Types Packs/Day Years Used Date Smoking Tobacco: Never Smokeless Tobacco: Never Tobacco Cessation:Counseling Given: Not Answered Alcohol Use Standard Drinks/Week Comments Yes 0 (1 standard drink = 0.6 oz pur e alcohol) socially AUDIT-C Answer Date Recorded Q1: How often do you have a drink containing alcohol? Never 09/12/2022 Q2: How many drinks containi ng alcohol do you have on a typical day when you are drinking? Patient does not drink Q3: How often do you have si x or more drinks on one occasion? Never 09/12/2022 Comments No Sex and Gender Information Value Date Recorded Sex Assigned at Not on file Legal Sex Female 10:40 AM CDT Gender Identity Not on file Sexual Orientation Not on file Last Filed Vital Signs Vital Sign Reading Time Taken Comments Blood Pressure 122/75 10/13/2022 2:27 PM CDT Pulse 70 10/13/2022 2:27 PM CDT Temperature 37.1 C (98.7 F) 09/13/2022 8:17 AM CDT Respiratory Rate 16 09/13/2022 8:17 AM CDT Oxygen Saturation 96% 09/13/2022 8:17 AM CDT Inhaled Oxygen Concentration - - Weight 73.4 kg (161 lb 12.8 oz) 10/13/2022 2:27 PM CDT Height 162.6 cm (5' 4) 10/13/2022 2:27 PM CDT Body Mass Index 27.77 10/13/2022 2:27 PM CDT Plan of Treatment Upcoming Encounters Date Type Department Care Team (Late st Contact Info) Description 12/30/2024 1:30 PM CDT Appointment [facility] [address] [place] [address] 12/31/2024 2:00 PM CDT Appointment [facility] [address] [place] [address] Health Maintenance Due Date Last Done Comments COLOGUARD (AGES 45-75) - COLON CA SCREENING 1972 COLON MONITORING 1972 COLONOSCOPY - COLON CA SCREENING 1972 CT COLONOGRAPHY - COLON CA SCREENING 1972 Colorectal Cancer Screening 1972 FIT - COLON CA SCREENING 1972 FLEX SIG - COLON CA SCREENING 1972 LIPID TESTING 1972 HIV SCREENING 1987 HEPATITIS C SCREENING 04/24/1990 DTAP/TDAP/TD VACCINES (1 - Tdap) 1991 HEPATITIS B VACCINE (1 of 3 - 19+ 3-dose series) 1991 PAP SMEAR 1993 PNEUMOCOCCAL VACCINE 50+ (1 of 1 - PCV) 2022 ZOSTER VACCINE (1 of 2) 2022 MAMMOGRAM 07/11/2023 07/11/2021, 03/2 01/2021, 08/23/2020, Additional history exists COVID-19 VACCINE ( - season) 2024 02/19/2021, 01/29/2021 DEPRESSION SCREENING 05/28/2024 INFLUENZA VACCINE (#1) 2025 SCREENING FOR DIABETES 02/16/2026 3, 09/13/2022, 09/13/2022, Additional history exists HIB VACCINE Aged Out No longer eligi ble based on patient's age to complete this topic HPV VACCINE Aged Out No longer eligi ble based on patient's age to complete this topic MENINGOCOCCAL (Group B) VACCINE SHARED DECISION-MAKING Aged Out No longer eligible based on patient's age to complete this topic MENINGOCOCCAL GROUPS A/C/Y/W VACCINE Aged Out No longer eligible based on patient's age to complete this topic Procedures Procedure Name Priority Date/Time Associated Diagnosis Comments GLUCOSE - POINT OF CARE Routine 09/13/2022 8:58 AM CDT from Last 3 Months or Most Recently Relevant to Health Maintenance Results * (ABNORMAL) GLUCOSE - POINT OF CARE (09/13/2022 8:58 AM CDT) Glucose WB/POC 189(H) 70 - 115 mg/dL 09/13/2022 4:54 PM CDT [facility] Specimen Type Cap Fingerstick 2022 4:54 PM CDT [facility] Blood BLOOD SPECIMEN / Unknown 09/13/2022 8:58 AM CDT 09/13/2022 4:54 PM CDT us Jean Potter MD LAB - POINT OF CARE ORDERABLES F inal Result [facility] [address] [place] [address], [facility] [phone] from Last 3 Months or Most Recently Relevant to Health Maintenance Insurance [facility] ANTHEM Advance Directives * Full Code (Latest Code Status on File) Date Activated Date Inactivated Comments 09/12/2022 8:44 PM 09/13/2022 12:00 PM Care Teams Automation/Controls Manager Relationship Specialty Start Date End Date Nancie Pires APRN-CNP [address] [place] [phone] PCP - General 08/30/22
--- OUTSIDE RECORDS SUMMARY | 2024-12-23 08:11 | XMS_ITS | Continuity of Care Document ---
Author Organization [facility] Address [address] [place] [address] Phone Care Team Providers Care Military Equipment Specialist Name Role Phone Unavailable Unavailable Unavailable Advance Directives Directive Yes / No Effective Date File Name No Information Encounters Encounter Description Practice Location Reason(s) For Visit Diagnoses Date Provider Providers Copied on Encounter [facility], [address], [place], [place], [id number], [place] tel:[phone] [facility] OUTPAT[facility] No Information 0 3 No Information Referring Provider: KAYLEIGH FLORES L, [address], [place], [address]. tel:[phone] Family History Family Member Type Diagnosis Age At Onset No Information Payers Payer name Insurance type Covered constitution party ID Authorguillermo bianchi(s) [facility] PPO [id number] Social History Type Description Quantity Date Captured Comments Sex Female Smoking Status No Information Chief Complaint And Reason For Visit No Information History Of Present Illness Encounter Date Complaint History Of Prese nt Illness No Information Instructions Date Instruction Additional Infor mation No Information Assessments Type Assessment Date No Information
== END 2024-12-23 08:05 | disposition home or self-care (01) ==
PROVIDERS: PCP Nurse Practitioner Family; Visit Provider Internal Medicine Endocrinology, Diabetes & Metabolism
DX: R74.8 Abnormal levels of other serum enzymes (principal); K76.0 Fatty (change of) liver, not elsewhere classified
CPT/HCPCS: 76705